=== PATIENT | female | born 1985 | race Caucasian/White ===

== ENCOUNTER → 2017-05-05 | Outpatient (CLI) | payer OTHER ==
[~2017-05-05] MED LIST: BIRTH CONTROL PILLS; CETI5; CETI5 PO; CYCL10 PO; HYDACE10B PO; HYDACE5 PO; IBUP600 PO; IBUP800 PO; LORA1 PO; METO25ER PO; NAPR500 PO; OXYACE5T PO; OXYC10ER PO; Omeprazole20 M1; PROM25 PO; Percocet 5-3251 EACH PO; Verotin-Gr Cap1 EACH PO; ZOLP5 PO; Zanaflex6 MG PO
== END | disposition home or self-care (01) ==
LOC: LAB 11:22
DX: O09.291 Supervision of pregnancy with other poor reproductive or obstetric history, first trimester (principal); O99.89 Other specified diseases and conditions complicating pregnancy, childbirth and the puerperium; R30.0 Dysuria; Z3A.13 13 weeks gestation of pregnancy
CPT/HCPCS: 36415; 81420; 87086

== ENCOUNTER → 2017-08-02 | Outpatient (CLI) | payer OTHER ==
[~2017-08-02] MED LIST changes: -Verotin-Gr Cap1 EACH PO
== END | disposition home or self-care (01) ==
LOC: LAB SHORT 16:42 → LAB 16:42
DX: N89.8 Other specified noninflammatory disorders of vagina (principal)
CPT/HCPCS: 87070; 87205

== ENCOUNTER → 2017-10-04 | Outpatient (CLI) | payer OTHER | END | disposition home or self-care (01) | LOC: LAB 11:52 → LAB SHORT 11:52 | DX: O09.293 Supervision of pregnancy with other poor reproductive or obstetric history, third trimester (principal); Z3A.35 35 weeks gestation of pregnancy | CPT/HCPCS: 87081; 87653 ==

== ENCOUNTER 2017-10-20 23:48 | Inpatient (IN) | payer OTHER ==
[~2017-10-20] VITALS: Ht 160 cm; Wt 93.1 kg
[2017-10-21] MEDS ORDERED: Verotin-Gr Cap1 EACH PO (00:22)
[2017-10-21 00:47] LABS: BASOPHILS ABSOLUTE AUTO 0.05 K/mm3 (0.00-0.23); BASOPHILS PERCENT AUTO 0 % (0-2); EOSINOPHILS ABSOLUTE AUTO 0.48 K/mm3 (0.00-0.68); EOSINOPHILS PERCENT AUTO 4 % (0-6); IMMATURE GRAN ABSOLUTE AUTO 0.11 K/mm3 (0.00-0.10); IMMATURE GRAN PERCENT AUTO 1 % (0-1); LYMPHOCYTES ABSOLUTE AUTO 3.38 K/mm3 (0.84-5.20); LYMPHOCYTES PERCENT AUTO 25 % (21-46); MONOCYTES ABSOLUTE AUTO 1.17 K/mm3 (0.16-1.47); MONOCYTES PERCENT AUTO 9 % (4-13); Mean Corpuscular HGB 28.5 pg (26.0-34.0); Mean Corpuscular HGB Conc 33.3 g/dL (31.5-36.5); Mean Corpuscular Volume 86 fL (80-100); Mean Platelet Volume 9.7 fL (9.1-12.4); NEUTROPHILS ABSOLUTE AUTO 8.49 K/mm3 (1.96-9.15); NEUTROPHILS PERCENT AUTO 62 % (41-73); Platelet Count 207 K/mm3 (150-400); RDW Coefficient Variation 13.1 % (11.7-14.2); RDW Standard Deviation 40.7 fL (35.1-46.3); Red Blood Cell Count 4.21 M/mm3 (3.80-5.20); White Blood Cell Count 13.68 K/mm3 (4.00-11.30)
[2017-10-22 05:03] LABS: Hematocrit 31.3 % (33.0-51.0); Hemoglobin 10.1 g/dL (11.5-16.0); Mean Corpuscular HGB Conc 32.3 g/dL (31.5-36.5); Mean Corpuscular Volume 87 fL (80-100); Mean Platelet Volume 9.7 fL (9.1-12.4); Platelet Count 194 K/mm3 (150-400); Red Blood Cell Count 3.61 M/mm3 (3.80-5.20); White Blood Cell Count 14.26 K/mm3 (4.00-11.30)
[2017-10-23] MEDS ORDERED: IBUP800 PO (10:19)
[2017-10-23] MEDS ORDERED: Percocet 5-3251 EACH PO (10:19)
== END 2017-10-23 11:30 | disposition home or self-care (01) | DRG 775 ==
LOC: OBS 23:48 → BC 23:49 → OBS 10-21 00:09 → BC 10-21 00:12
PROVIDERS: Obstetrics & Gynecology
PROC: 10E0XZZ Delivery of Products of Conception, External Approach (ICD-10-PCS; principal; 2017-10-21)
DX: O99.824 Streptococcus B carrier state complicating childbirth (principal); Z37.0 Single live birth; Z3A.37 37 weeks gestation of pregnancy; O69.82X0 Labor and delivery complicated by other cord entanglement, without compression, not applicable or unspecified
CPT/HCPCS: 36415; 51702; 85025; 85027; 99214; J0690; J1885; J2590; J3010; J7120

== ENCOUNTER → 2017-11-02 | Outpatient (CLI) | payer OTHER ==
[~2017-11-02] MED LIST changes: +Verotin-Gr Cap1 EACH PO
== END | disposition home or self-care (01) ==
LOC: LAB SHORT 17:59 → LAB 17:59
DX: N89.8 Other specified noninflammatory disorders of vagina (principal)
CPT/HCPCS: 87070; 87205; 87529

== ENCOUNTER → 2018-04-15 | Outpatient (CLI) | payer OTHER | LOC: LAB EV 12:59 → LAB SHORT 12:59 | DX: R30.0 Dysuria (principal) | CPT/HCPCS: 87086 ==

== ENCOUNTER → 2018-10-19 | Outpatient (CLI) | payer OTHER ==
[2018-10-22 04:06] LABS: CHLAMYDIA TRACHOMATIS, NAA Negative (Negative); NEISSERIA GONORRHOEAE, NAA Negative (Negative)
== END ==
LOC: LAB EV 11:30 → LAB SHORT 11:30
PROVIDERS: Student in an Organized Health Care Education/Training Program
DX: N89.8 Other specified noninflammatory disorders of vagina (principal)
CPT/HCPCS: 87491; 87591

== ENCOUNTER 2019-04-11 09:34 | Emergency (ER) | payer OTHER ==
[~2019-04-11] VITALS: Ht 160 cm; Wt 81.7 kg
[2019-04-11] MEDS ORDERED: Percocet 5-3251 EACH PO (13:37)
== END 2019-04-11 14:01 | disposition home or self-care (01) ==
LOC: ER 09:34
DX: M50.123 Cervical disc disorder at C6-C7 level with radiculopathy (principal); Z88.0 Allergy status to penicillin; Z88.2 Allergy status to sulfonamides; Z91.040 Latex allergy status; Z88.5 Allergy status to narcotic agent; Z88.8 Allergy status to other drugs, medicaments and biological substances
CPT/HCPCS: 72141; 96372; 99283-25; J1170; J1885

== ENCOUNTER 2019-05-29 21:08 | Emergency (ER) | payer OTHER ==
[~2019-05-29] VITALS: Ht 160 cm; Wt 86.2 kg
[2019-05-29] MEDS ORDERED: DULO30 PO (23:32)
[2019-05-29] MEDS ORDERED: MELO7.5 PO (23:32)
[2019-05-29] MEDS ORDERED: OMEP20ER PO (23:33)
[2019-05-29] MEDS ORDERED: TRAZ100 PO (23:33)
== END 2019-05-30 00:32 | disposition home or self-care (01) ==
LOC: ER 21:08
DX: M54.12 Radiculopathy, cervical region (principal); Z88.0 Allergy status to penicillin; Z88.5 Allergy status to narcotic agent; Z88.2 Allergy status to sulfonamides
CPT/HCPCS: 96372; 99283; J1885; J3301

== ENCOUNTER 2020-05-19 17:33 | Emergency (ER) | payer OTHER ==
[~2020-05-19] VITALS: Ht 160 cm; Wt 68.0 kg
[~2020-05-19 17:33] MED LIST changes: +DULO30 PO; +MELO7.5 PO; +OMEP20ER PO; +TRAZ100 PO
[2020-05-19 18:00] LABS: BASOPHILS ABSOLUTE AUTO 0.04 K/mm3 (0.00-0.23); BASOPHILS PERCENT AUTO 0 % (0-2); EOSINOPHILS ABSOLUTE AUTO 0.03 K/mm3 (0.00-0.68); EOSINOPHILS PERCENT AUTO 0 % (0-6); Hematocrit 41.5 % (33.0-51.0); Hemoglobin 13.9 g/dL (11.5-16.0); IMMATURE GRAN ABSOLUTE AUTO 0.05 K/mm3 (0.00-0.10); IMMATURE GRAN PERCENT AUTO 0 % (0-1); LYMPHOCYTES ABSOLUTE AUTO 1.74 K/mm3 (0.84-5.20); LYMPHOCYTES PERCENT AUTO 11 % (21-46); MONOCYTES ABSOLUTE AUTO 0.55 K/mm3 (0.16-1.47); MONOCYTES PERCENT AUTO 3 % (4-13); Mean Corpuscular HGB 29.6 pg (26.0-34.0); Mean Corpuscular HGB Conc 33.5 g/dL (31.5-36.5); Mean Corpuscular Volume 89 fL (80-100); Mean Platelet Volume 9.6 fL (9.1-12.4); NEUTROPHILS ABSOLUTE AUTO 13.98 K/mm3 (1.96-9.15); NEUTROPHILS PERCENT AUTO 85 % (41-73); Platelet Count 244 K/mm3 (150-400); RDW Coefficient Variation 11.9 % (11.7-14.2); RDW Standard Deviation 38.3 fL (35.1-46.3); Red Blood Cell Count 4.69 M/mm3 (3.80-5.20); White Blood Cell Count 16.39 K/mm3 (4.00-11.30)
[2020-05-19 18:18] LABS: Alanine Aminotransfer (ALT/SGP 33 U/L (12-78); Albumin, Blood 3.8 g/dL (3.4-5.0); Alk Phos 87 U/L (50-136); Anion Gap 7 mmol/L (6-16); Aspartate Aminotrans (AST/SGOT 19 U/L (12-37); Bilirubin, Total 0.6 mg/dL (0.1-1.0); Blood Urea Nitrogen 9 mg/dL (8-24); Bun/Creatinine Ratio 10.1 (12.0-20.0); CO2, Blood 24 mmol/L (21-32); Calcium, Blood 8.7 mg/dL (8.5-10.1); Chloride, Blood 104 mmol/L (98-108); Creatinine, Blood 0.89 mg/dL (0.40-1.00); Globulin, Blood 3.7 g/dL (2.2-4.0); Glomerular Filtration Rate >60 (60-); Glucose, Blood 95 mg/dL (70-99); Potassium, Blood 3.9 mmol/L (3.5-5.5); Sodium, Blood 135 mmol/L (136-145); Total Protein, Blood 7.5 g/dL (6.4-8.2)
[2020-05-19 21:43] LABS: Source, Urine Clean Catch
[2020-05-19 21:46] LABS: Bilirubin, Urine Neg (Neg); Blood, Urine 1+ (Neg); Glucose Qualitative, Urine Neg (Neg); Ketones, Urine 1+ (Neg); Leukocyte Esterase, Urine 3+ (Neg); Nitrite, Urine Neg (Neg); Protein, Urine 2+ (Neg); Urobilinogen, Urine NORM (Normal)
[2020-05-19 21:47] LABS: Appearance, Urine Hazy (Clear); Color, Urine Yellow (P-Yellow)
[2020-05-19 21:54] LABS: Bacteria Many /hpf; Red Blood Cells, Urine 0-2 /hpf (0-2); Squamous Epithelial Cells Mod /hpf (Few); White Blood Cells, Urine TNTC /hpf (0-5)
[2020-05-19] MEDS ORDERED: Zithromax250 MG PO (22:01)
[2020-05-20] MEDS ORDERED: PREG75 PO (23:09)
[2020-05-20] MEDS ORDERED: Budeprion Xl300 MG PO (23:09)
[2020-05-20] MEDS ORDERED: PROM25 PO (23:10)
[2020-05-20] MEDS ORDERED: AZIT250 PO (23:10)
[2020-05-20] MEDS ORDERED: MELO7.5 PO (23:10)
== END 2020-05-19 23:15 | disposition home or self-care (01) ==
LOC: ER 17:33
PROVIDERS: Emergency Medicine; Physician Assistant
DX: J02.0 Streptococcal pharyngitis (principal); Z79.899 Other long term (current) drug therapy
CPT/HCPCS: 36415; 71045; 80053; 81001; 81025; 85025; 87077; 87086; 87186; 99283-25; A9270; J7030

== ENCOUNTER 2020-05-20 22:48 | Inpatient (IN) | payer BC, OTHER ==
[~2020-05-20] VITALS: Ht 160 cm; Wt 80.9 kg
[~2020-05-20 22:48] MED LIST changes: +Zithromax250 MG PO
[2020-05-20] MEDS ORDERED: Budeprion Xl300 MG PO (23:09)
[2020-05-20] MEDS ORDERED: PREG75 PO (23:09)
[2020-05-20] MEDS ORDERED: MELO7.5 PO (23:10)
[2020-05-20] MEDS ORDERED: PROM25 PO (23:10)
[2020-05-20] MEDS ORDERED: AZIT250 PO (23:10)
[2020-05-20 23:55] LABS: Source, Urine Catheter
[2020-05-20 23:57] LABS: Bilirubin, Urine Neg (Neg); Blood, Urine 1+ (Neg); Glucose Qualitative, Urine Neg (Neg); Ketones, Urine 1+ (Neg); Leukocyte Esterase, Urine 3+ (Neg); Nitrite, Urine Neg (Neg); Protein, Urine 1+ (Neg); Specific Gravity, Urine 1.015 (1.003-1.022); Urobilinogen, Urine 1+ (Normal)
[2020-05-20 23:58] LABS: Appearance, Urine Clear (Clear); Color, Urine Yellow (P-Yellow)
[2020-05-21 00:07] LABS: BASOPHILS ABSOLUTE AUTO 0.04 K/mm3 (0.00-0.23); BASOPHILS PERCENT AUTO 0 % (0-2); EOSINOPHILS ABSOLUTE AUTO 0.06 K/mm3 (0.00-0.68); EOSINOPHILS PERCENT AUTO 0 % (0-6); Hematocrit 37.4 % (33.0-51.0); Hemoglobin 12.9 g/dL (11.5-16.0); IMMATURE GRAN ABSOLUTE AUTO 0.06 K/mm3 (0.00-0.10); IMMATURE GRAN PERCENT AUTO 0 % (0-1); LYMPHOCYTES ABSOLUTE AUTO 2.38 K/mm3 (0.84-5.20); LYMPHOCYTES PERCENT AUTO 16 % (21-46); MONOCYTES ABSOLUTE AUTO 1.47 K/mm3 (0.16-1.47); MONOCYTES PERCENT AUTO 10 % (4-13); Mean Corpuscular HGB 30.1 pg (26.0-34.0); Mean Corpuscular HGB Conc 34.5 g/dL (31.5-36.5); Mean Corpuscular Volume 87 fL (80-100); Mean Platelet Volume 9.7 fL (9.1-12.4); NEUTROPHILS ABSOLUTE AUTO 11.28 K/mm3 (1.96-9.15); NEUTROPHILS PERCENT AUTO 74 % (41-73); Platelet Count 245 K/mm3 (150-400); RDW Coefficient Variation 11.7 % (11.7-14.2); RDW Standard Deviation 37.4 fL (35.1-46.3); Red Blood Cell Count 4.29 M/mm3 (3.80-5.20); White Blood Cell Count 15.29 K/mm3 (4.00-11.30)
[2020-05-21 00:15] LABS: Bacteria Mod /hpf; Red Blood Cells, Urine 0-2 /hpf (0-2); Squamous Epithelial Cells Mod /hpf (Few)
[2020-05-21 00:21] LABS: Alanine Aminotransfer (ALT/SGP 27 U/L (12-78); Albumin, Blood 3.3 g/dL (3.4-5.0); Albumin/Globulin Ratio 0.8 (0.8-1.8); Alk Phos 74 U/L (50-136); Anion Gap 8 mmol/L (6-16); Aspartate Aminotrans (AST/SGOT 12 U/L (12-37); Bilirubin, Total 0.5 mg/dL (0.1-1.0); Blood Urea Nitrogen 8 mg/dL (8-24); CO2, Blood 23 mmol/L (21-32); Calcium, Blood 8.7 mg/dL (8.5-10.1); Chloride, Blood 108 mmol/L (98-108); Creatinine, Blood 0.89 mg/dL (0.40-1.00); Globulin, Blood 3.9 g/dL (2.2-4.0); Glomerular Filtration Rate >60 (60-); Glucose, Blood 99 mg/dL (70-99); Potassium, Blood 3.6 mmol/L (3.5-5.5); Sodium, Blood 139 mmol/L (136-145); Total Protein, Blood 7.2 g/dL (6.4-8.2)
[2020-05-21 00:47] LABS: Source, Urine Catheter
[2020-05-21 00:49] LABS: Bilirubin, Urine Neg (Neg); Blood, Urine 4+ (Neg); Glucose Qualitative, Urine Neg (Neg); Ketones, Urine 1+ (Neg); Leukocyte Esterase, Urine 1+ (Neg); Nitrite, Urine Neg (Neg); Protein, Urine 1+ (Neg); Specific Gravity, Urine 1.015 (1.003-1.022); Urobilinogen, Urine 2+ (Normal)
[2020-05-21 00:51] LABS: Appearance, Urine Clear (Clear); Color, Urine Yellow (P-Yellow)
[2020-05-21 00:57] LABS: Bacteria Mod /hpf; Squamous Epithelial Cells Not Seen /hpf (Few); Transitional Epithelial Cells Few /hpf (0-Rare)
[2020-05-21] MEDS ORDERED: CEPH500 PO (01:13)
[2020-05-21] MEDS ORDERED: Norco 5-325 Ta1 EACH PO (01:13)
[2020-05-21] MEDS ORDERED: ONDA4ODT MM (01:13)
[2020-05-21 05:52] LABS: BASOPHILS ABSOLUTE AUTO 0.04 K/mm3 (0.00-0.23); BASOPHILS PERCENT AUTO 0 % (0-2); EOSINOPHILS ABSOLUTE AUTO 0.07 K/mm3 (0.00-0.68); EOSINOPHILS PERCENT AUTO 1 % (0-6); Hematocrit 30.4 % (33.0-51.0); IMMATURE GRAN ABSOLUTE AUTO 0.03 K/mm3 (0.00-0.10); IMMATURE GRAN PERCENT AUTO 0 % (0-1); LYMPHOCYTES ABSOLUTE AUTO 2.63 K/mm3 (0.84-5.20); LYMPHOCYTES PERCENT AUTO 25 % (21-46); MONOCYTES PERCENT AUTO 12 % (4-13); Mean Corpuscular HGB 29.8 pg (26.0-34.0); Mean Corpuscular HGB Conc 32.9 g/dL (31.5-36.5); Mean Corpuscular Volume 91 fL (80-100); NEUTROPHILS ABSOLUTE AUTO 6.38 K/mm3 (1.96-9.15); NEUTROPHILS PERCENT AUTO 62 % (41-73); Platelet Count 180 K/mm3 (150-400); RDW Coefficient Variation 11.8 % (11.7-14.2); RDW Standard Deviation 38.9 fL (35.1-46.3); Red Blood Cell Count 3.36 M/mm3 (3.80-5.20); White Blood Cell Count 10.35 K/mm3 (4.00-11.30)
[2020-05-21 06:10] LABS: Alanine Aminotransfer (ALT/SGP 18 U/L (12-78); Albumin, Blood 2.4 g/dL (3.4-5.0); Albumin/Globulin Ratio 0.8 (0.8-1.8); Alk Phos 52 U/L (50-136); Anion Gap 6 mmol/L (6-16); Aspartate Aminotrans (AST/SGOT 11 U/L (12-37); Bilirubin, Total 0.2 mg/dL (0.1-1.0); Blood Urea Nitrogen 9 mg/dL (8-24); Bun/Creatinine Ratio 12.2 (12.0-20.0); CO2, Blood 22 mmol/L (21-32); Calcium, Blood 7.2 mg/dL (8.5-10.1); Chloride, Blood 116 mmol/L (98-108); Creatinine, Blood 0.74 mg/dL (0.40-1.00); Glomerular Filtration Rate >60 (60-); Glucose, Blood 93 mg/dL (70-99); Potassium, Blood 3.6 mmol/L (3.5-5.5); Sodium, Blood 144 mmol/L (136-145); Total Protein, Blood 5.4 g/dL (6.4-8.2)
[2020-05-21] MEDS ORDERED: PREGABALIN150 M1 PO (12:02)
[2020-05-21] MEDS ORDERED: BUPROPION XL150 M1 PO (12:03)
--- NOTE | 2020-05-21 17:18 | NUR ---
ASSUMED CARE: PT TRANSFERRED TO ICU 2 FROM ED WITH 2MCG OF LEVOPHED RUNNING AND FLUID BOLUS. PT ALERT AND ORIENTED BUT STATES SHE FEELS WEAK AND PAINFUL FROM RIGHT FLANK AROUND TO UMBILICUS. ABLE TO AMBULATE TO BSC. AT BEDSIDE. CALL TO DR LUCIO TO UPDATE AND CLARIFY DIET AND PAIN MED ORDERS WELL FLUID ORDERS. AWARE THAT PT CURRENTLY ON 1MCG OF LEVOPHED. DISCUSSED WITH CAMERA SYSTEMS ENGINEER WHO SUGGESTED TURNING LEVOPHED OFF FOR MAPS. LEVOPHED TITRATED OFF. WITH FLUSHING IV AFTERWARDS, PT STATED IV WAS STINGING WITH FLUSH. CAMERA SYSTEMS ENGINEER AWARE THAT MED IS OFF BUT PT REPORTED SORE. FLUID BOLUS COMPLETING AND CONTINUOUS FLUIDS AFTER THIS. CALL LIGHT IN REACH. NO FURTHER NEEDS OR CONCERNS AT THIS TIME.
--- NOTE | 2020-05-21 19:30 | NUR ---
ASSUMED CARE W BEDSIDE REPORT. PT WAS ASSISTED TO TOILET TO VOID, CL PALE URINE, PT IS STEADY, ONLY REQ ASSIST W LINES. COMPL OF R FLANK AND ABD PAIN, WAS JUST MED BY MORE RN, WILL MONITOR EFFECTIVENESS. WILL MED W ZOFRAN FOR NAUSEA. MAINT IV FLUIDS INFUSING, LEVOPHED ON STANDBY. CALL LIGHT IN REACH.
--- NOTE | 2020-05-21 22:15 | NUR ---
FEELING BETTER AFTER PAIN MED AND ZOFRAN. UP TO VOID, URINE IS PALE YELLOW. LEVOPHED CONT ON SB, MAY NEED TO RESTART IF BP CONT LOW. CALL LIGHT IN REACH.
--- NOTE | 2020-05-22 02:40 | NUR ---
LEVOPHED RESTARTED AND TITRATED UP TO 3MCG/MIN, SEE FLOWSHEET. UP TO BR W SB ASSIST AND CONT TO VOID PALE URINE. MED AGAIN W NORCO AND ZOFRAN. USING CALL LIGHT FOR ASSIST.
--- NOTE | 2020-05-22 06:39 | NUR ---
CONT SLEEPING SOUNDLY. VSS, BP'S 90-100'S/50-60'S W LEVOPHED CONT AT 3MCG/MIN. CALL LIGHT CONT W IN REACH. WILL PLAN BEDSIDE REPORT.
--- NOTE | 2020-05-22 09:05 | NUR ---
PT RESTING IN BED. A/O X4. C/O FLANK AND BACK PAIN, MEDICATED WITH NORCO AND ZOFRAN. PT IS ABLE TO KEEP WATER AND GATORADE DOWN NOW. STATES HER THROAT IS FEELING BETTER AFTER RECEIVING ABX FOR STREP. TURNED PERIPHERAL LEVOPHED OFF. SBP 100 WITH MAP GREATER THAN 65. PT HAS BEEN VOIDING WELL. NO SIGN OF DISTRESS.
--- NOTE | 2020-05-22 17:53 | NUR ---
SUMMARY PT IS A/O X4. HAS BEEN OFF LEVOPHED SINCE EARLY THIS AM. HAS BEEN VOIDING WELL. DRINKING WATER AND TOLERATING FOOD. STILL HAS R FLANK PAIN THAT IS BEING MANAGED WITH NORCO. HAS SOME DIZZINESS WITH AMBULATION. DR. LUCIO BY TO SEE PT THIS EVENING. UPDATED ON EVENTS OF THE DAY. OK FOR PCU STATUS. NO SIGN OF DISTRESS NOW. CALL LIGHT IN REACH.
--- NOTE | 2020-05-22 18:19 | NUR ---
Per admit trigger, I met with Fozia to offer information on Advanced Directives. She was not interested, but accepted the information packet. She is hopeful for recovery and denied concerns.
--- NOTE | 2020-05-22 23:08 | NUR ---
ASSUMED CARE OF PATIENT AT APPROXIMATELY 1905 FROM PEÑA Amos RN. PATIENT ALERT AND ORIENTED X4; SBA OUT OF BED DUE TO DIZZINESS WITH AMBULATION. PATIENT REPORT DIZZINESS HAS IMPROVED. PATIENT REPORTS PAIN IN HER BACK AND A HEADACHED; MEDICATED PER EMAR; REPOSISTIONED PATIENT AND GIVEN K-PAD FOR HEAT. PATIENT REPORTS NAUSEA RELATED TO PAIN MEDICATION. PATIENT DENIES NUMBNESS AND TINGLING. NSR ON HEART MONITOR; SBP IN 90'S; OXYGEN SATURATION ABOVE 90% ON ROOM AIR. IVF INFUSING PER ORDER. PATIENT UP TO TOILET TO VOID. PATIENT CURRENTLY RESTING IN BED; CALL LIGHT IN REACH; BED IN LOWEST POSISTION
--- NOTE | 2020-05-23 00:22 | NUR ---
PATIENT'S SBP IN 80'S; PATIENT WAS SLEEPING VERY WELL. DISCUSSED WITH BAR AND FILLER ASSEMBLER; WILL RECHECK BP IN TWO HOURS. PATIENT REPORTS K-PAD HELPING WITH PAIN.
--- NOTE | 2020-05-23 04:07 | NUR ---
CALLED DR. HOLLAND ABOUT PATIENT'S BLOOD PRESSURE DROPPING INTO 70'S SYSTOLIC FROM 90'S; ORDERS FOR 500ML BOLUS; ALSO REQUESTED TORADOL FOR PATIENT'S FLANK/BACK PAIN; ORDERS RECIEVED.
--- NOTE | 2020-05-23 14:40 | NUR ---
Medication given for pain and preemtively for nausea. Also gave bowel care as ordered at this time. Pt states she is feeling better. Noted vital signs, blood pressure are stable at this time. She has been up independently to the commode, dangling at side of bed, and doing arm/leg exercises while at rest to reduce trace swelling in her hands and feet. STates headache is gone, but still having 4-5/10 pain in her flank at times. Has needed pain medication twice so far today.
--- NOTE | 2020-05-23 18:16 | NUR ---
summary Fozia has had improved blood pressures over all today, with less pain than she was having also before. More active within the space of her room, up to the commode independently, and stating that she is feeling better. Eating and drinking with good appetite. No fever. Voiding large amounts, no bowel movement yet today, so bowel care was started.
--- NOTE | 2020-05-23 21:22 | NUR ---
Care Assumed 1900 Pt A/O to location, event, and date. Able to ambulate indepenetly to toilet and walking in room, denies dizziness. Pt reports a headache, treated per emnar. Nausea of (04/28) at this time. NSR. VSS, on RA. Call light in reach, will continue to monitor.
--- NOTE | 2020-05-24 05:38 | NUR ---
Shift Summary Pt rested T/O shift. Denies pain/nausea. VSS. MAP > 65. NSR. Pt able to turn self in bed and up to toilet multiple times t/o the night, denies dizziness. Will report to oncoming shift.
[2020-05-24 08:26] LABS: BASOPHILS ABSOLUTE AUTO 0.05 K/mm3 (0.00-0.23); BASOPHILS PERCENT AUTO 1 % (0-2); EOSINOPHILS ABSOLUTE AUTO 0.17 K/mm3 (0.00-0.68); EOSINOPHILS PERCENT AUTO 3 % (0-6); Hematocrit 36.4 % (33.0-51.0); Hemoglobin 11.9 g/dL (11.5-16.0); IMMATURE GRAN ABSOLUTE AUTO 0.02 K/mm3 (0.00-0.10); IMMATURE GRAN PERCENT AUTO 0 % (0-1); LYMPHOCYTES ABSOLUTE AUTO 2.24 K/mm3 (0.84-5.20); LYMPHOCYTES PERCENT AUTO 39 % (21-46); MONOCYTES ABSOLUTE AUTO 0.36 K/mm3 (0.16-1.47); MONOCYTES PERCENT AUTO 6 % (4-13); Mean Corpuscular HGB 29.4 pg (26.0-34.0); Mean Corpuscular HGB Conc 32.7 g/dL (31.5-36.5); Mean Corpuscular Volume 90 fL (80-100); Mean Platelet Volume 9.1 fL (9.1-12.4); NEUTROPHILS ABSOLUTE AUTO 2.89 K/mm3 (1.96-9.15); NEUTROPHILS PERCENT AUTO 50 % (41-73); Platelet Count 289 K/mm3 (150-400); RDW Standard Deviation 39.8 fL (35.1-46.3); Red Blood Cell Count 4.05 M/mm3 (3.80-5.20); White Blood Cell Count 5.73 K/mm3 (4.00-11.30)
--- NOTE | 2020-05-24 08:30 | NUR ---
AM NOTE... ASSUMED CARE OF PT APROX 0700, PT IS A&Ox4 AND IND IN THE ROOM. PT'S VS STABLE AT THIS TIME W/MAPS >65 PT IS IN NSR IN THE 60'S-80'S. L/S CLEAR AND ON RA. BT PRESENT AND HYPOACTIVE, ABD IS SOFT AND NONTENDER TO PALP. PT DENIES ANY N/V OR SOB. PT DOES C/O OF 4/10 BACK PAIN, MEDICATED PER EMAR. NO EDEMA NOTED ON ASSESSMENT. PT HAS BEEN GETTING UP TO VOID CLEAR LIGHT YELLOW URINE INDEPENDENTLY. CALL LIGHT IN REACH WILL CONTINUE TO MONITOR.
[2020-05-24 09:05] LABS: Anion Gap 3 mmol/L (6-16); Blood Urea Nitrogen 6 mg/dL (8-24); Bun/Creatinine Ratio 7.7 (12.0-20.0); CO2, Blood 28 mmol/L (21-32); Calcium, Blood 8.5 mg/dL (8.5-10.1); Chloride, Blood 111 mmol/L (98-108); Creatinine, Blood 0.78 mg/dL (0.40-1.00); Glomerular Filtration Rate >60 (60-); Glucose, Blood 82 mg/dL (70-99); Potassium, Blood 3.6 mmol/L (3.5-5.5); Sodium, Blood 142 mmol/L (136-145)
--- NOTE | 2020-05-24 13:23 | NUR ---
05/24/20- met with pt and reviewed d/c letter. Pt acknowledged understanding. She would like to have her follow up appt be with Dr. Jones. She would also like to transfer care to him and see him as her PCP. Reviewed the process with her and she will fill out paperwork when she makes her hospital f/u appt. -[place]
[2020-05-24] MEDS ORDERED: CEFP200 PO (15:24)
[2020-05-24] MEDS ORDERED: HYDR1TAB94 PO (15:25)
--- NOTE | 2020-05-24 15:36 | NUR ---
PT D/C HOME... PT D/C HOME WITH , PT REFUSED W/C ESCORT OUT TO THE DOOR. PT'S IV REMOVED WNL. NEW MEDICATIONS CALLED INTO THE PHARMACY OF PT'S CHOICE, NEW MEDICATION EDUCATION PROVIDED TO THE PT, PT VERBALIZED HER UNDERSTANDING. ALL OF PT'S BELONGINGS PACKED AND SENT WITH THE PT.
== END 2020-05-24 15:45 | disposition home or self-care (01) | DRG 871 ==
LOC: ER 22:48 → ICUE 05-21 01:39 → ERHOLD 05-21 01:39 → ER 05-21 01:39 → ICUE 05-21 16:30 → ICUW 05-23 18:56
PROVIDERS: Emergency Medicine; Internal Medicine; ADMIT Internal Medicine
DX: A41.9 Sepsis, unspecified organism (principal); R65.21 Severe sepsis with septic shock; N39.0 Urinary tract infection, site not specified; N12 Tubulo-interstitial nephritis, not specified as acute or chronic; F41.9 Anxiety disorder, unspecified; B96.20 Unspecified Escherichia coli [E. coli] as the cause of diseases classified elsewhere; M79.7 Fibromyalgia; M50.322 Other cervical disc degeneration at C5-C6 level
CPT/HCPCS: 36415; 71045; 74176; 80048; 80053; 81001; 81025; 83605; 85025; 87040; 87077; 87086; 87186; 96361; 96365; 96375; 99283-25; 99285-25; A9270; J0696; J1650; J1885; J2405; J3010; J7030; J7060; J7120; P9612

== ENCOUNTER → 2020-12-19 | Outpatient (CLI) | payer OTHER ==
[~2020-12-19] MED LIST changes: +AZIT250 PO; +BUPROPION XL150 M1 PO; +Budeprion Xl300 MG PO; +CEFP200 PO; +CEPH500 PO; +HYDR1TAB94 PO; +Norco 5-325 Ta1 EACH PO; +ONDA4ODT MM; +PREG75 PO; +PREGABALIN150 M1 PO
[2020-12-19 15:36] LABS: Source, Urine Clean Catch
[2020-12-19 16:30] LABS: Appearance, Urine Clear (Clear); Bilirubin, Urine Neg (Neg); Blood, Urine Neg (Neg); Color, Urine Yellow (P-Yellow); Glucose Qualitative, Urine Neg (Neg); Ketones, Urine Neg (Neg); Leukocyte Esterase, Urine Neg (Neg); Nitrite, Urine Neg (Neg); Protein, Urine 2+ (Neg); Urobilinogen, Urine 1+ (Normal)
[2020-12-19 16:45] LABS: Bacteria Not Seen /hpf; Calcium Oxalate Crystals Mod /hpf; Red Blood Cells, Urine Rare /hpf (0-2); Squamous Epithelial Cells Few /hpf (Few); White Blood Cells, Urine 0-2 /hpf (0-5)
[2020-12-20 09:27] LABS: Candida species (DNA Probe) Positive (NEGATIVE); G. vaginalis (DNA Probe) Negative (NEGATIVE); T. vaginalis (DNA Probe) Negative (NEGATIVE)
== END | disposition home or self-care (01) ==
LOC: LAB SHORT 12:00
PROVIDERS: Obstetrics & Gynecology
DX: N89.8 Other specified noninflammatory disorders of vagina (principal); R30.9 Painful micturition, unspecified
CPT/HCPCS: 81001; 87480; 87510; 87660

== ENCOUNTER → 2021-02-13 | Outpatient (CLI) | payer OTHER ==
[2021-02-13 14:03] LABS: Source, Urine Clean Catch
[2021-02-13 15:26] LABS: Appearance, Urine Hazy (Clear); Blood, Urine 1+ (Neg); Color, Urine Amber (P-Yellow); Glucose Qualitative, Urine Neg (Neg); Ketones, Urine Neg (Neg); Leukocyte Esterase, Urine 2+ (Neg); Nitrite, Urine Neg (Neg); Protein, Urine 2+ (Neg); Urobilinogen, Urine NORM (Normal)
[2021-02-13 15:37] LABS: Bilirubin, Urine 1+ (Neg)
[2021-02-13 15:38] LABS: Bacteria Many /hpf; Squamous Epithelial Cells Many /hpf (Few)
== END | disposition home or self-care (01) ==
LOC: LAB 09:00 → LAB SHORT 09:00
PROVIDERS: Internal Medicine
DX: R35.0 Frequency of micturition (principal)
CPT/HCPCS: 81001; 87086

== ENCOUNTER → 2021-02-18 | Outpatient (CLI) | payer OTHER | END | disposition home or self-care (01) | LOC: LAB SHORT 15:30 | DX: R35.0 Frequency of micturition (principal) | CPT/HCPCS: 87086 ==

== ENCOUNTER → 2021-03-12 | Outpatient (CLI) | payer OTHER | LOC: LAB SHORT 10:01 | DX: N92.6 Irregular menstruation, unspecified (principal) | CPT/HCPCS: 88305 ==

== ENCOUNTER → 2021-09-30 | Outpatient (CLI) | payer OTHER ==
[~2021-09-30] MED LIST changes: +ACET500 PO; +GABA300 PO; +IBUP400 PO; +Robaxin750 MG PO
[2021-10-01 07:43] LABS: Candida species (DNA Probe) Negative (NEGATIVE); G. vaginalis (DNA Probe) Positive (NEGATIVE); T. vaginalis (DNA Probe) Negative (NEGATIVE)
== END | disposition home or self-care (01) ==
LOC: LAB SHORT 09:42
PROVIDERS: Obstetrics & Gynecology
DX: N89.9 Noninflammatory disorder of vagina, unspecified (principal)
CPT/HCPCS: 87480; 87510; 87660

== ENCOUNTER → 2021-12-17 | Outpatient (CLI) | payer OTHER ==
[2021-12-18 10:23] LABS: Candida species (DNA Probe) Positive (NEGATIVE); G. vaginalis (DNA Probe) Negative (NEGATIVE); T. vaginalis (DNA Probe) Negative (NEGATIVE)
== END | disposition home or self-care (01) ==
LOC: LAB SHORT 15:23
PROVIDERS: Obstetrics & Gynecology
DX: N76.0 Acute vaginitis (principal)
CPT/HCPCS: 87480; 87510; 87660

== ENCOUNTER → 2022-05-13 | Outpatient (CLI) | payer OTHER ==
[2022-05-13 13:59] LABS: Candida species (DNA Probe) Positive (NEGATIVE); G. vaginalis (DNA Probe) Negative (NEGATIVE); T. vaginalis (DNA Probe) Negative (NEGATIVE)
== END | disposition home or self-care (01) ==
LOC: LAB SHORT 10:43
PROVIDERS: Obstetrics & Gynecology
DX: N76.0 Acute vaginitis (principal)
CPT/HCPCS: 87480; 87510; 87660

== ENCOUNTER → 2022-06-16 | Outpatient (CLI) | payer OTHER ==
[2022-06-17 08:21] LABS: Candida species (DNA Probe) Positive (NEGATIVE); G. vaginalis (DNA Probe) Negative (NEGATIVE); T. vaginalis (DNA Probe) Negative (NEGATIVE)
== END | disposition home or self-care (01) ==
LOC: LAB SHORT 15:27
PROVIDERS: Obstetrics & Gynecology
DX: N76.0 Acute vaginitis (principal)
CPT/HCPCS: 87480; 87510; 87660

== ENCOUNTER 2022-09-30 02:23 | Inpatient (IN) | payer OTHER ==
[2022-09-30] VITALS (34 sets, daily range): BP systolic 85–147; BP diastolic 54–89
[~2022-09-30] VITALS: Ht 160 cm; Wt 100.0 kg
[2022-09-30 03:20] LABS: BASOPHILS ABSOLUTE AUTO 0.04 K/mm3 (0.00-0.23); BASOPHILS PERCENT AUTO 0 % (0-2); EOSINOPHILS ABSOLUTE AUTO 0.11 K/mm3 (0.00-0.68); EOSINOPHILS PERCENT AUTO 1 % (0-6); Hematocrit 35.7 % (33.0-51.0); IMMATURE GRAN PERCENT AUTO 1 % (0-1); LYMPHOCYTES ABSOLUTE AUTO 2.87 K/mm3 (0.84-5.20); LYMPHOCYTES PERCENT AUTO 20 % (21-46); MONOCYTES ABSOLUTE AUTO 0.98 K/mm3 (0.16-1.47); MONOCYTES PERCENT AUTO 7 % (4-13); Mean Corpuscular HGB 29.9 pg (26.0-34.0); Mean Corpuscular HGB Conc 33.6 g/dL (31.5-36.5); Mean Corpuscular Volume 89 fL (80-100); Mean Platelet Volume 9.9 fL (9.1-12.4); NEUTROPHILS ABSOLUTE AUTO 10.15 K/mm3 (1.96-9.15); NEUTROPHILS PERCENT AUTO 71 % (41-73); Platelet Count 217 K/mm3 (150-400); RDW Coefficient Variation 13.6 % (11.7-14.2); RDW Standard Deviation 44.1 fL (35.1-46.3); Red Blood Cell Count 4.02 M/mm3 (3.80-5.20); White Blood Cell Count 14.25 K/mm3 (4.00-11.30)
[2022-09-30] MEDS ORDERED: PRENATAL TABLE1 EAC2 PO (03:20)
[2022-09-30] MEDS ORDERED: ACYC400 PO (03:59)
[2022-09-30] MEDS ORDERED: FAMO20 PO (04:00)
[2022-10-01 00:57] VITALS: BP 123/78
[2022-10-01 03:57] VITALS: BP 100/62
[2022-10-01 08:46] VITALS: BP 108/71
[2022-10-01 11:37] VITALS: BP 126/80
--- NOTE | 2022-10-01 11:51 | NUR ---
DISCHARGE DISCHARGE HOME STABLE. VSS. AFEBRILE. CARING FOR SELF AND BABY INEPENDANTLY. LOCHIA SCANT. VERBALIZE UNDERSTANDING OF DC INSTRUCTIONS AND FOLLOW UP APPOINTMENTS. NO QUESTIONS OR CONCERS.
--- NOTE | 2022-10-02 09:49 | NUR ---
UPDATED PER RN / EMR
== END 2022-10-01 12:35 | disposition home or self-care (01) | DRG 806 ==
LOC: OBS 02:23 → BC 02:25 → OBS 02:34 → BC 02:35
PROVIDERS: ADMIT Family Medicine
PROC: 10E0XZZ Delivery of Products of Conception, External Approach (ICD-10-PCS; principal; 2022-09-30)
PROC: 00HU33Z Insertion of Infusion Device into Spinal Canal, Percutaneous Approach (ICD-10-PCS; 2022-09-30)
PROC: 3E0R3BZ Introduction of Anesthetic Agent into Spinal Canal, Percutaneous Approach (ICD-10-PCS; 2022-09-30)
PROC: 10907ZC Drainage of Amniotic Fluid, Therapeutic from Products of Conception, Via Natural or Artificial Opening (ICD-10-PCS; 2022-09-30)
DX: O99.824 Streptococcus B carrier state complicating childbirth (principal); O98.32 Other infections with a predominantly sexual mode of transmission complicating childbirth; Z37.0 Single live birth; O99.324 Drug use complicating childbirth; O99.814 Abnormal glucose complicating childbirth; O99.344 Other mental disorders complicating childbirth; M48.00 Spinal stenosis, site unspecified; B95.1 Streptococcus, group B, as the cause of diseases classified elsewhere; B00.9 Herpesviral infection, unspecified; F32.A Depression, unspecified; F12.90 Cannabis use, unspecified, uncomplicated; Z67.10 Type A blood, Rh positive; F41.9 Anxiety disorder, unspecified; Z3A.39 39 weeks gestation of pregnancy; Z87.42 Personal history of other diseases of the female genital tract; Z90.49 Acquired absence of other specified parts of digestive tract; Z98.890 Other specified postprocedural states; Z98.1 Arthrodesis status; Z87.891 Personal history of nicotine dependence; Z88.5 Allergy status to narcotic agent; Z88.0 Allergy status to penicillin; Z88.2 Allergy status to sulfonamides; Z91.040 Latex allergy status; Z79.899 Other long term (current) drug therapy
CPT/HCPCS: 36415; 51702; 85025; 86850; 86900; 86901; 90471; 90707; A9270; J1885; J2590; J3010; J3370; J7050; J7120

== ENCOUNTER 2024-01-22 15:42 | Observation (INO) | payer OTHER ==
[~2024-01-22] VITALS: Ht 160 cm; Wt 93.6 kg
[~2024-01-22 15:42] MED LIST changes: +ACYC400 PO; +FAMO20 PO; +PRENATAL TABLE1 EAC2 PO
[2024-01-22] MEDS ORDERED: Ketorolac Tromethamine 30mg Vial IV ONE (16:20)
[2024-01-22] MEDS ORDERED: Ondansetron HCl 2 MG / ML 2ML Vial IV ONE ×2 (16:20→18:55)
[2024-01-22] MEDS ORDERED: PROM25 PO (16:30)
[2024-01-22] MEDS ORDERED: HYDR1TAB94 PO (16:30)
[2024-01-22] MEDS ORDERED: Robaxin750 MG PO (16:30)
[2024-01-22] MEDS ORDERED: LOMAIRA8 MG PO (16:31)
[2024-01-22] MEDS ORDERED: TOPI50 PO (16:31)
[2024-01-22] MEDS ORDERED: OMEP20ER PO (16:32)
[2024-01-22] MEDS ORDERED: IBUP800 PO (16:32)
[2024-01-22 16:33] LABS: Source, Urine Clean Catch
[2024-01-22] MEDS ORDERED: BIRTH CONTROL PATCH (16:33)
[2024-01-22 16:39] LABS: Appearance, Urine Hazy (Clear); Blood, Urine Neg (Neg); Color, Urine Yellow (P-Yellow); Glucose Qualitative, Urine Neg (Neg); Ketones, Urine 2+ (Neg); Leukocyte Esterase, Urine 2+ (Neg); Nitrite, Urine Neg (Neg); Protein, Urine 2+ (Neg); Specific Gravity, Urine 1.025 (1.003-1.022); Urobilinogen, Urine NORM (Normal)
[2024-01-22 16:42] LABS: BASOPHILS ABSOLUTE AUTO 0.07 K/mm3 (0.00-0.23); BASOPHILS PERCENT AUTO 1 % (0-2); EOSINOPHILS ABSOLUTE AUTO 0.21 K/mm3 (0.00-0.68); EOSINOPHILS PERCENT AUTO 2 % (0-6); Hematocrit 42.8 % (33.0-51.0); Hemoglobin 14.7 g/dL (11.5-16.0); IMMATURE GRAN ABSOLUTE AUTO 0.04 K/mm3 (0.00-0.10); IMMATURE GRAN PERCENT AUTO 0 % (0-1); LYMPHOCYTES ABSOLUTE AUTO 3.96 K/mm3 (0.84-5.20); LYMPHOCYTES PERCENT AUTO 30 % (21-46); MONOCYTES ABSOLUTE AUTO 0.59 K/mm3 (0.16-1.47); MONOCYTES PERCENT AUTO 4 % (4-13); Mean Corpuscular HGB 30.2 pg (26.0-34.0); Mean Corpuscular HGB Conc 34.3 g/dL (31.5-36.5); Mean Corpuscular Volume 88 fL (80-100); Mean Platelet Volume 9.1 fL (9.1-12.4); NEUTROPHILS ABSOLUTE AUTO 8.42 K/mm3 (1.96-9.15); NEUTROPHILS PERCENT AUTO 63 % (41-73); Platelet Count 290 K/mm3 (150-400); RDW Coefficient Variation 12.1 % (11.7-14.2); RDW Standard Deviation 39.1 fL (35.1-46.3); Red Blood Cell Count 4.86 M/mm3 (3.80-5.20); White Blood Cell Count 13.29 K/mm3 (4.00-11.30)
[2024-01-22 16:46] LABS: Bilirubin, Urine 1+ (Neg)
[2024-01-22 16:47] LABS: Mucus Light (0-Heavy)
[2024-01-22 16:48] LABS: Bacteria Many /hpf; Red Blood Cells, Urine 0-2 /hpf (0-2); Squamous Epithelial Cells Many /hpf (Few); Transitional Epithelial Cells Rare /hpf (0-Rare)
[2024-01-22 16:54] LABS: Albumin, Blood 3.8 g/dL (3.4-5.0); Bilirubin, Total 0.7 mg/dL (0.1-1.0); Bun/Creatinine Ratio 8.2 (12.0-20.0); Calcium, Blood 8.8 mg/dL (8.5-10.1); Creatinine, Blood 0.98 mg/dL (0.40-1.00); Globulin, Blood 3.7 g/dL (2.2-4.0); Potassium, Blood 3.4 mmol/L (3.5-5.5); Total Protein, Blood 7.5 g/dL (6.4-8.2)
[2024-01-22] MEDS ORDERED: Tamsulosin HCl 0.4 MG Cap PO ONE (17:20)
[2024-01-22] MEDS ORDERED: FentaNYL Citrate 50 MCG/ML 2 ML Injection IV ONE (17:25)
[2024-01-22] MEDS ORDERED: Ciprofloxacin 400MG/D5 200ML 200 ML IV ONE (17:25)
[2024-01-22] MEDS ORDERED: NS 1,000 ML IV SCH (18:55)
[2024-01-22] MEDS ORDERED: FLU VACC TS2024-25(6MOS UP)/PF 45 MCG/0.5 ML SYRINGE IM ONE (20:45)
[2024-01-22] MEDS ORDERED: FentaNYL Citrate 50 MCG/ML 2 ML Injection IV PRN (20:50)
[2024-01-22] MEDS ORDERED: Lactated Ringer's 1,000 ML IV SCH (20:50)
[2024-01-22] MEDS ORDERED: Prochlorperazine Edisylate 10 mg Vial IV PRN (20:50)
[2024-01-22 20:57] VITALS: BP 118/82
[2024-01-22] MEDS ORDERED: GABA300 PO (21:12)
[2024-01-22] MEDS ORDERED: MetroNIDAZOLE 500MG/NS 100 ml 100 ML IV SCH (22:00)
[2024-01-22] MEDS ORDERED: Gabapentin 300 MG Cap PO SCH (22:20)
[2024-01-22] MEDS ORDERED: Omeprazole 20 MG CapCR PO SCH (22:20)
[2024-01-23] VITALS (17 sets, daily range): BP systolic 92–128; BP diastolic 56–83
[2024-01-23] MEDS ORDERED: LevoFLOXacin 750 MG/D5W 150ML 150 ML IV SCH (09:00)
[2024-01-23] MEDS ORDERED: Lactated Ringer's 1,000 ML IV ONE (14:38)
[2024-01-23] MEDS ORDERED: TOPI25 PO (14:43)
[2024-01-23] MEDS ORDERED: propofoL 20 ML IV ONE (14:49)
[2024-01-23] MEDS ORDERED: Rocuronium Bromide 10 MG/ML 5ML Injection IV ONE (14:50)
[2024-01-23] MEDS ORDERED: FentaNYL Citrate 50 MCG/ML 2 ML Injection ONE ×3 (14:50→16:43)
--- NOTE | 2024-01-23 15:05 | NUR ---
PT IN PACU FOR PRE OP, DR JENKINS CONSULTED WITH PT AT 1505. History, Chart, Medications and Allergies reviewed before start of procedure.Pre-Op teaching done. Pt verbalizes understanding. Patient confirms NPO status and agrees with scheduled surgery. Lungs clear T/O to Auscultation.
[2024-01-23] MEDS ORDERED: Midazolam HCl 1MG / ML 2ML Vial ONE (15:13)
[2024-01-23] MEDS ORDERED: Bupivacaine 0.5% HCl 5 MG/ML 30MLVIAL ONE (15:15)
--- NOTE | 2024-01-23 15:22 | NUR ---
Antonino HERRERA HAS CONSULTED WITH PT, NOW GOING BACK TO OR2, REPORT TO ANN URIBE
[2024-01-23] MEDS ORDERED: Ketorolac Tromethamine 30mg Vial ONE (15:53)
[2024-01-23] MEDS ORDERED: Dexamethasone Sod Phos 10 MG/ML 1ML VIAL ONE (15:53)
[2024-01-23] MEDS ORDERED: Ondansetron HCl 2 MG / ML 2ML Vial ONE ×2 (15:53→16:43)
[2024-01-23] MEDS ORDERED: Sugammadex Sodium 200 MG/2ML SDV (100 MG/ML) ONE (15:57)
--- NOTE | 2024-01-23 16:08 | NUR ---
01/23/24 1608 Monica Longoria CONTROL PATCH REMOVED PRIOR TO PREPPING ABDOMEN PER DR. JENKINS
[2024-01-23] MEDS ORDERED: HYDROcodone 5-APAP 325 TAB PO PRN (16:15)
--- NOTE | 2024-01-23 17:30 | NUR ---
1700 RECEIVED REPORT FROM NANDA IN PACU. PT ARRIVED BACK TO ROOM 327 AT 1715, AWAKE AND ALERT, PAIN CONTROLLED, NAUSEA CONTROLLED. USED THE BEDPAN TO VOID ONCE SLID OVER INTO BED. BOWEL TONES NORMOACTIVE. LAP SITES WITH GAUZE/TEG, NO VISIBLE DRAINAGE, CDI- STARTING ON CLEARS. AT BEDSIDE, SUPPORTIVE IN CARE. VSS WILL REPORT TO AKBAR URIBE
--- NOTE | 2024-01-23 17:45 | NUR ---
1450 PT TX TO PRESURG FOR LAP APPY DR JENKINS. PT VOIDED, JUST MEDICATED WITH FENT AND COMPAZINE FOR NAUSEA WITH RELEIF OF PAIN AND NAUSEA
[2024-01-23] MEDS ORDERED: NS 250 ML IV PRN (18:35)
[2024-01-23] MEDS ORDERED: Omeprazole 20 MG CapCR PO SCH (21:00)
[2024-01-23] MEDS ORDERED: Gabapentin 300 MG Cap PO SCH (21:00)
[2024-01-24 00:01] VITALS: BP 81/55
[2024-01-24 04:16] VITALS: BP 95/63
--- NOTE | 2024-01-24 06:33 | NUR ---
Patient alert and oriented, VSS, resting mostly comfortably in bed overnight. Patient frequently requesting PRN pain medication, education provided, see eMAR for details. Patient ambulating to restroom with standby assistance and independently using cane, SCD's in place while in bed, tolerating room air appropriately. 3 Lap sites to lower abdomen, gauze with tegaderm dressings in place, clean/dry/intact.
[2024-01-24 07:58] VITALS: BP 120/81
[2024-01-24] MEDS ORDERED: HYDR1TAB94 PO (09:14)
--- NOTE | 2024-01-24 11:07 | NUR ---
DISCHARGE: PT D/C @1045 VIA WHEELCHAIR WITH . NO NEW MEDICATIONS. PT STATES SHE HAS PO PAIN MEDICATION AT HOME. PT AWARE TO MAKE FOLLOW-UP APPOINTMENT WITH DR. JENKINS WITHIN TWO WEEKS. POST SURGICAL EDUCATION PROVIDED TO PT. NO IV REMOVED BY SEED ANALYST W/O COMPLICATIONS. NO QUESTIONS TIME OF D/C.
== END 2024-01-24 10:47 | disposition home or self-care (01) ==
LOC: ER 15:42 → MEDS 15:43
PROVIDERS: Physician Assistant; ADMIT Surgery
PROC: 0DTJ4ZZ Resection of Appendix, Percutaneous Endoscopic Approach (ICD-10-PCS; principal; 2024-01-23 15:00)
DX: K35.80 Unspecified acute appendicitis (principal); I10 Essential (primary) hypertension; M79.7 Fibromyalgia; F17.290 Nicotine dependence, other tobacco product, uncomplicated; Z79.899 Other long term (current) drug therapy; Z91.040 Latex allergy status; Z88.0 Allergy status to penicillin; Z88.2 Allergy status to sulfonamides; Z88.5 Allergy status to narcotic agent; Z88.8 Allergy status to other drugs, medicaments and biological substances; Z90.49 Acquired absence of other specified parts of digestive tract
CPT/HCPCS: 36415; 74176; 76770; 80053; 81001; 81025; 83605; 85025; 87040; 87086; 88304; 96361; 96365; 96367; 96374; 96375; 96376; 99285-25; A9270; G0378; J0744; J0780; J1100; J1885; J1956; J2250; J2405; J2704; J3010; J7030; J7050; J7120

== ENCOUNTER → 2024-02-09 | Outpatient (CLI) | payer OTHER ==
[~2024-02-09] MED LIST changes: +BIRTH CONTROL PATCH; +LOMAIRA8 MG PO; +TOPI25 PO; +TOPI50 PO
== END ==
LOC: LAB 08:23 → LAB SHORT 08:23
DX: N87.0 Mild cervical dysplasia (principal); N92.1 Excessive and frequent menstruation with irregular cycle; Z87.42 Personal history of other diseases of the female genital tract
CPT/HCPCS: 88305

== ENCOUNTER → 2024-03-24 | Outpatient (CLI) | payer OTHER ==
[2024-03-24 18:43] LABS: Adenovirus F 40/41 Not Detected (NOT DETECT); Astrovirus Not Detected (NOT DETECT); Campylobacter Sp Not Detected (NOT DETECT); Cryptosporidium Not Detected (NOT DETECT); Cyclospora Cayetanensis Not Detected (NOT DETECT); E. Coli O157 Not Detected (NOT DETECT); Entamoeba Histolytica Not Detected (NOT DETECT); Enteroaggregative E. coli-EAEC Not Detected (NOT DETECT); Enteropathogenic E. coli-EPEC Not Detected (NOT DETECT); Enterotoxigenic E. coli-ETEC Not Detected (NOT DETECT); Giardia Lamblia Not Detected (NOT DETECT); Norovirus GI/GII Not Detected (NOT DETECT); Plesiomonas Shigelloides Not Detected (NOT DETECT); Rotavirus A Not Detected (NOT DETECT); Salmonella Sp Not Detected (NOT DETECT); Sapovirus Not Detected (NOT DETECT); Shiga Toxin-prod E. coli-STEC Not Detected (NOT DETECT); Shigella/Enteroin E. coli-EIEC Not Detected (NOT DETECT); Vibrio Cholerae Not Detected (NOT DETECT); Vibrio Sp Not Detected (NOT DETECT); Yersinia Enterocolitica Not Detected (NOT DETECT)
== END ==
LOC: LAB 14:28 → LAB SHORT 14:28
PROVIDERS: Obstetrics & Gynecology
DX: R19.7 Diarrhea, unspecified (principal)
CPT/HCPCS: 87507

== ENCOUNTER 2024-03-31 12:31 | Day surgery (SDC) | payer OTHER ==
[~2024-03-31] VITALS: Ht 160 cm; Wt 92.3 kg
[~2024-03-31 12:31] MED LIST changes: +Lactated Ringer's 1,000 ML IV ONE
[2024-03-31] MEDS ORDERED: Lactated Ringer's 1,000 ML IV ONE (13:08)
[2024-03-31] MEDS ORDERED: FentaNYL Citrate 50 MCG/ML 2 ML Injection ONE ×2 (13:43→14:34)
[2024-03-31] MEDS ORDERED: propofoL 20 ML IV ONE (13:44)
[2024-03-31] MEDS ORDERED: Dexamethasone Sod Phos 10 MG/ML 1ML VIAL ONE (14:00)
[2024-03-31] MEDS ORDERED: Ondansetron HCl 2 MG / ML 2ML Vial ONE ×2 (14:05→14:34)
[2024-03-31] MEDS ORDERED: Lidocaine HCl 1% 20 ML MDV XX ONE (14:09)
[2024-03-31] MEDS ORDERED: Vasopressin 20 UNITS/ML 1ML Vial XX ONE (14:10)
[2024-03-31 15:01] VITALS: BP 111/92
[2024-03-31] MEDS ORDERED: OxyCODONE 5 mg/Acetamin 325 mg TABLET ONE (15:01)
--- NOTE | 2024-03-31 16:15 | NUR ---
03/31/24 1615 Michael Moss PT REPORTED 6/10 PAIN UPON D/C (FLACC 3-4/10). SHE DESCRIBED PAIN TOLERABLE AND SIMILAR TO BASELINE. SHE EXPRESSED READINESS TO RETURN HOME. PT DENIED NAUSEA. PT STATES HR UPON D/C WITHIN 20% OF BASELINE AND DESCRIBES BEING TENSE/NERVOUS PRIOR TO SURGERY.
== END 2024-03-31 15:44 | disposition home or self-care (01) ==
LOC: ORSCSDS 12:31
PROVIDERS: Obstetrics & Gynecology
PROC: 0UBC8ZX Excision of Cervix, Via Natural or Artificial Opening Endoscopic, Diagnostic (ICD-10-PCS; principal; 2024-03-31 13:15)
DX: N87.9 Dysplasia of cervix uteri, unspecified (principal); F41.8 Other specified anxiety disorders; I12.9 Hypertensive chronic kidney disease with stage 1 through stage 4 chronic kidney disease, or unspecified chronic kidney disease; N18.2 Chronic kidney disease, stage 2 (mild); R73.9 Hyperglycemia, unspecified; M79.7 Fibromyalgia; K21.9 Gastro-esophageal reflux disease without esophagitis; E66.01 Morbid (severe) obesity due to excess calories; Z68.36 Body mass index [BMI] 36.0-36.9, adult; Z79.899 Other long term (current) drug therapy; Z87.891 Personal history of nicotine dependence
CPT/HCPCS: 88305; A9270; J1100; J2405; J2704; J3010; J7120

== ENCOUNTER 2024-06-19 06:23 | Day surgery (SDC) | payer OTHER ==
[2024-06-19] VITALS (13 sets, daily range): BP systolic 11–139; BP diastolic 61–90
[~2024-06-19] VITALS: Ht 160 cm; Wt 94.0 kg
[~2024-06-19 06:23] MED LIST changes: -Lactated Ringer's 1,000 ML IV ONE; +Lactated Ringer's 1,000 ML IV SCH
--- NOTE | 2024-06-19 07:03 | NUR ---
AMBULATORY INTO [facility]. PT REPORTS 7/10 NECK AND BACK PAIN. HISTORY AND ALLERGIES REVIEWED. HR 120'S. PT REPORTS THAT SHE IS VERY ANXIOUS AND HAS NOT SLEPT FOR THE PAST WEEK SHE HAS NOT TAKEN IBUPROFEN. LUNGS CLEAR. NPO STATUS CONFIRMED. PT SPOUSE MICHELLE IS HER RIDE HOME TODAY. PT GLASSES TO PACU AND BELONGINGS BAG BENEATH THE GURNEY.
[2024-06-19] MEDS ORDERED: Bupivacaine 0.5% W/EPI 1:200000 SDV 30 ML Vial ONE (07:04)
[2024-06-19] MEDS ORDERED: Clindamycin 600mg in D5W 50 ML IV SCH (07:15)
[2024-06-19] MEDS ORDERED: Midazolam HCl 1MG / ML 2ML Vial IV ONE (07:20)
[2024-06-19] MEDS ORDERED: FentaNYL Citrate 50 MCG/ML 2 ML Injection ONE ×3 (07:23→10:04)
[2024-06-19] MEDS ORDERED: propofoL 20 ML IV ONE (07:23)
[2024-06-19] MEDS ORDERED: Lidocaine HCl 2% 20 ML MDV ONE (07:43)
[2024-06-19] MEDS ORDERED: Dexamethasone Sod Phos 10 MG/ML 1ML VIAL ONE (07:43)
[2024-06-19] MEDS ORDERED: Ondansetron HCl 2 MG / ML 2ML Vial ONE (07:43)
[2024-06-19] MEDS ORDERED: Labetalol HCL 5 MG/ML 4ML Injection (Single Dose) ONE ×2 (07:46→08:15)
[2024-06-19] MEDS ORDERED: SuccINYLCHOLINE Chloride 100 MG/5 ML 5MLSYR ONE (08:15)
[2024-06-19] MEDS ORDERED: Rocuronium Bromide 10 MG/ML 5ML Injection IV ONE (08:15)
[2024-06-19] MEDS ORDERED: Gentamicin Sulfate 100 MG in NS 100 ML IV SCH (08:20)
[2024-06-19] MEDS ORDERED: Sugammadex Sodium 200 MG/2ML SDV (100 MG/ML) ONE (09:17)
[2024-06-19] MEDS ORDERED: Ketorolac Tromethamine 30mg Vial ONE (09:19)
[2024-06-19] MEDS ORDERED: DiphenhydrAMINE HCL 25 MG Cap PO PRN (09:35)
[2024-06-19] MEDS ORDERED: FentaNYL Citrate 50 MCG/ML 2 ML Injection IV PRN (09:35)
[2024-06-19] MEDS ORDERED: FLU VACC TS2024-25(6MOS UP)/PF 45 MCG/0.5 ML SYRINGE IM SCH (09:35)
[2024-06-19] MEDS ORDERED: Simethicone 80 MG Chew PO PRN (09:35)
[2024-06-19] MEDS ORDERED: OxyCODONE HCL 5 MG TAB PO PRN ×2 (09:35→09:40)
[2024-06-19] MEDS ORDERED: Ondansetron HCl 2 MG / ML 2ML Vial IV PRN (09:40)
[2024-06-19] MEDS ORDERED: Ketorolac Tromethamine 30mg Vial IV PRN (09:40)
[2024-06-19] MEDS ORDERED: Metoclopramide HCl 10 MG Tab PO PRN (09:40)
[2024-06-19] MEDS ORDERED: HYDROmorphone HCl 0.5 MG/0.5 ML SYR ONE ×2 (09:57→10:05)
--- NOTE | 2024-06-19 11:38 | NUR ---
ARRIVAL TO UNIT AFTER RECEIVING REPORT FROM AIR CONDITIONING UNIT ASSEMBLER, PATIENT TRANSFERRED TO UNIT VIA [facility] AT APPROX 1035. PATIENT ALERT - TRANSFERRED FROM GURNEY TO BED VIA SLIDER SHEET. ALERT AND ORIENTED X4. COMMUNICATES NEEDS EFFECTIVELY. VSS. SBP 110s. MAP >65. TACHYCARDIC - 110s-120s BPM. ASYMPTOMATIC. IVF INFUSING TO GRAVITY. TOLERATING ROOM AIR, SATs >90%. S/P ROBOTIC TOTAL HYSTER - X4 LAP SITES C/D/I. REPORTING 7/10 PAIN. TOLERATING PO INTAKE - DENIES N/V. MEDICATED PER EMAR. UP TO RESTROOM WITH 1P ASSIST. SMALL VOID. SCANT VAGINAL BLEEDING ON PAD. CALL LIGHT IN REACH.
--- NOTE | 2024-06-19 14:02 | NUR ---
DISCHARGE NOTE NO ACUTE CHANGES SINCE ARRIVAL TO UNIT NOTE. S/P LAP HYSTER. VSS. TACHYCARDIA - 110s-120s. ASYMPTOMATIC. BP STABLE. ON ROOM AIR, SATs >90%. X4 LAP SITES WITH WOUND GLUE C/D/I. SCANT VAGINAL BLEEDING. TOLERATING PO INTAKE. VOIDING. UP AMBULATING IN HALLWAY. PAIN MANAGED WITH PRESCRIBED THERAPY. MD SPIVEY CONTACTED WITH UPDATE - DC HOME ORDERED. IV REMOVED. DC EDUCATION - BOTH PATIENT AND SPOUSE STATE UNDERSTANDING. PATIENT HAS PRESCRIBED MEDICATIONS AT HOME. PATIENT TRANSFERRED OFF UNIT VIA AT APPROX 1400. PERSONAL BELONGINGS WITH PATIENT.
[2024-06-19] MEDS ORDERED: Acetaminophen 500 MG Tab PO SCH (16:00)
== END 2024-06-19 14:00 | disposition home or self-care (01) ==
LOC: ORSCMMR 06:23 → ORD 07:30 → SURS 10:21 → ORSCMMR 14:00
PROVIDERS: Obstetrics & Gynecology
PROC: 0UT7FZZ Resection of Bilateral Fallopian Tubes, Via Natural or Artificial Opening With Percutaneous Endoscopic Assistance (ICD-10-PCS; principal; 2024-06-19 07:30)
PROC: 0UT9FZZ Resection of Uterus, Via Natural or Artificial Opening With Percutaneous Endoscopic Assistance (ICD-10-PCS; principal; 2024-06-19 07:30)
DX: N80.03 Adenomyosis of the uterus (principal); D25.9 Leiomyoma of uterus, unspecified; F41.8 Other specified anxiety disorders; I12.9 Hypertensive chronic kidney disease with stage 1 through stage 4 chronic kidney disease, or unspecified chronic kidney disease; N18.2 Chronic kidney disease, stage 2 (mild); Z79.82 Long term (current) use of aspirin; Z79.899 Other long term (current) drug therapy
CPT/HCPCS: 86850; 86900; 86901; 88307; A9270; J0330; J1100; J1171; J1580; J1885; J2250; J2405; J2704; J3010; J7120